=== PATIENT | female | born 1990 | race Caucasian/White ===

== ENCOUNTER 2018-09-11 20:00 | Emergency (ER) | payer OTHER ==
[2018-09-11] MEDS ORDERED: DIPH,PERTUS(ACELL)TETVAC-LF 0.5 ML VIAL IM ONE (20:18)
[2018-09-11] MEDS ORDERED: HYDROmorphone 0.5 MG/0.5 ML SYRINGE IVP STA ×2 (20:18→22:07)
[2018-09-11] MEDS ORDERED: LIDOCAINE 1% INJ 10MG/ML (20 ML MDV) SQ ONE (20:26)
--- NOTE | 2018-09-11 20:39 | ED ---
General Adult HPI - General Chief complaint: Wound/Laceration Stated complaint: Head Laceration Time Seen by Provider: 09/11/18 20:12 Source: patient, EMS, RN notes reviewed Mode of arrival: EMS Limitations: no limitations - History of Present Illness Initial comments: 28-year-old female presents to the emergency department for a chief complaint of laceration. Patient states that just prior to arrival she was trying to cut down a tree with a chainsaw. Patient states the chain saw came back and hit her in the head. States she started bleeding immediately and did not notice it appears that she called 911. Patient is up-to-date on tetanus. Admits to mild headache at this time. Patient has no other complaints at this time including shortness of breath, chest pain, abdominal pain, nausea or vomiting, or visual changes. - Related Data Home Medications Medication Instructions Recorded Confirmed PARoxetine [Paxil] 20 mg PO HS 02/11/14 09/11/18 buPROPion XL [Wellbutrin XL] 150 mg PO HS 02/11/14 09/11/18 traZODone HCL [Desyrel] 100 mg PO HS 02/11/14 09/11/18 Dextroamphetamine/Amphetamine 30 mg PO DAILY 09/11/18 09/11/18 [Adderall Xr] Allergies Allergy/AdvReac Type Severity Reaction Status Date / Time No Known Allergies Allergy Verified 09/11/18 21:52 Review of Systems ROS Statement: Those systems with pertinent positive or pertinent negative responses have been documented in the HPI. ROS Other: All systems not noted in ROS Statement are negative. Past Medical History Past Medical History: No Reported History History of Any Multi-Drug Resistant Organisms: None Reported Additional Past Surgical History / Comment(s): eye surgery for "lazy eye" Past Psychological History: Anxiety, Depression Smoking Status: Never smoker Past Alcohol Use History: Occasional Past Drug Use History: None Reported General Exam Limitations: no limitations General appearance: alert, in no apparent distress Head exam: Absent: atraumatic (Patient has a 6 cm laceration noted to the right frontal scalp when bleeding controlled.) Eye exam: Present: normal appearance, PERRL, EOMI. Absent: scleral icterus, conjunctival injection, periorbital swelling ENT exam: Present: normal exam, normal oropharynx, mucous membranes moist, TM's normal bilaterally, normal external ear exam Neck exam: Present: normal inspection, full ROM. Absent: tenderness, meningismus, lymphadenopathy Respiratory exam: Present: normal lung sounds bilaterally. Absent: respiratory distress, wheezes, rales, rhonchi, stridor Cardiovascular Exam: Present: regular rate, normal rhythm, normal heart sounds. Absent: systolic murmur, diastolic murmur, rubs, gallop, clicks Neurological exam: Present: alert, oriented X3, CN II-XII intact Psychiatric exam: Present: normal affect, normal mood Course Vital Signs 09/11/18 20:03 Temperature 98.5 F Pulse Rate 99 Respiratory 20 Rate Blood Pressure 133/78 O2 Sat by Pulse 99 Oximetry Procedures - Laceration Laceration #1 Consent Obtained: verbal consent Indication: laceration Site: scalp Size (cm): 6 Description: irregular Depth: simple, single layer Anesthetic Used: lidocaine 1% Anesthesia Technique: local infiltration Amount (mls): 8 Pre-repair: wound explored, irrigated extensively Type of Sutures: nylon Size of Sutures: 5-0 Number of Sutures: 9 Technique: simple, interrupted Patient Tolerated Procedure: well, no complications Medical Decision Making - Medical Decision Making 28-year-old female presents to the emergency department for a chief complaint of laceration to the head. Patient was using a chain saw when he accidentally hit her forehead. No loss of consciousness. Patient up-to-date on immunizations. On exam patient does have a 6 mL laceration. Initially difficult to evaluate because of patient's anxiety around this situation. Therefore CT brain was ordered to visualize the skull. CT brain without contrast shows no acute process. There is a right frontal cutaneous and subcutaneous soft tissue defects but underlying skull is intact. Wound was cleaned thoroughly with saline pressure irrigation and iodine. It was then sutured with 9 simple interrupted sutures. Discussed follow-up with primary care in 1-2 days. Discussed returning in 10 days to have sutures removed. Discussed returning if she has any other worsening symptoms. Disposition Clinical Impression: Laceration Disposition: HOME SELF-CARE Condition: Good Instructions (If sedation given, give patient instructions): Laceration (ED), Care For Your Stitches (ED) Additional Instructions: Please monitor for signs of infection such as spreading or streaking redness and return if these occur. Return if you have any other worsening symptoms. Otherwise return in 7-10 days for suture removal. Follow up with primary care in 1-2 days for wound recheck. Is patient prescribed a controlled substance at d/c from ED?: No Referrals: Carmelina Olsen DO [Primary Care Provider] - 1-2 days Time of Disposition: 22:08
--- NOTE | 2018-09-11 21:01 | CT ---
EXAMINATION: CT brain wo con DATE AND TIME: 09/11/2018 8:37 PM CLINICAL INDICATION: PHH; Pain, right frontal lac by chainsaw TECHNIQUE: Standard departmental protocol. COMPARISON: 05/31/2014 FINDINGS: The right frontal cutaneous and subcutaneous soft tissue defect is noted, but the underlying skull is intact. The calvarium is intact. There is no intracranial hemorrhage. There is no intracranial mass or mass effect. No definite new intra-axial or extra-axial attenuation defect. The paranasal sinuses, middle ear cavities, and mastoid sinus air cells are clear. The orbits are unremarkable. IMPRESSION: NO ACUTE PROCESS.
[2018-09-11] MEDS ORDERED: ACET/COD 300 MG/30 MG STARTER PACK 6 TAB BTL PO STA (22:08)
[2018-09-11 22:28] VITALS: BP 130/93; PULSE 93; RESP 18; TEMP 98.3
== END 2018-09-11 22:32 | disposition home or self-care (01) ==
LOC: EC 20:00
DX: S01.01XA Laceration without foreign body of scalp, initial encounter (principal); F41.9 Anxiety disorder, unspecified; F32.9 Major depressive disorder, single episode, unspecified; Z79.899 Other long term (current) drug therapy; W29.3XXA Contact with powered garden and outdoor hand tools and machinery, initial encounter; Y93.89 Activity, other specified; Y92.009 Unspecified place in unspecified non-institutional (private) residence as the place of occurrence of the external cause
CPT/HCPCS: 70450; 99284; 12002; 96374; 96376; J2001; J1170

== ENCOUNTER → 2018-12-17 | Outpatient (CLI) | payer OTHER ==
[2018-12-17 10:27] VITALS: BP 108/73; PULSE 99; RESP 18; TEMP 98.6; BMI 27.4
--- NOTE | 2018-12-17 10:46 | P.GSHP ---
History of Present Illness H&P Date: 12/17/18 Chief Complaint: bilateral nipple discharge Rosalba is a 28-year-old white female who complains of bilateral nipple discharge. The discharge is noted to be clear in color. The discharge is spontaneous and stains her bras. She had bilateral ultrasounds performed on 11-06-18 which revealed several dilated ducts noted in the retroareolar region of both breasts without dominant mass. A nonspecific axillary node was noted on the left side. These were felt to be benign findings and six-month follow-up was recommended. The patient states that both breasts show fall and sore the right greater than the left in the lateral aspects. The patient is on control pills and has not had a period for 6 months. The pain is constant. She is using nuva ring once a month. She has polycystic ovarian disease. She has not noted any blood in the nipple discharge. She has no lumps or masses in her breast. She has had no recent changes in her medication. She does use no ring for control She drinks coffee sporadically. She does not smoke, she is not exposed to secondhand smoke. States chocolate occasionally. Perirectal levels drawn an 8319. Her prolactin level was 14.5. Reference range is 4.8-23.3. Family History: 1. Maternal great-grandmother: Breast cancer 2. Paternal aunt: Breast cancer 3. Paternal grandmother: Brain cancer 4. 2 Paternal aunt: Breast cancer 5. paternal uncle: colon 6. paternal grandfather: colon 7. paternal uncle: liver cancer Hormonal history: Menarche: 9 G0 irregular, polycystic ovarian disease BCP: Has been using some type of control sense 14 secondary to polycystic ovarian disease, nuva ring for cntrol hormones: depo-provera caused acne, and hotflashes for polycystic ovarian disease Surgical History: 1. eye for lazy eye 2. Colposcopy for abnormal Pap smear Medical History: Polycystic ovarian syndrome Anxiety/depression History of cervical intraepithelial neoplasia grade 1 History of condyloma acuminata of vulva Social History: smoke: none alcohol: none drugs: none Smoke: none - Constitutional Constitutional: Denies chills, Denies fever - EENT Comment: surgery for bilateral lazy eye, right eye Eyes: right pain, denies loss of vision Ears: deny: decreased hearing, tinnitus Ears, nose, mouth and throat: Reports headache - Breasts Breasts: bilateral: as per HPI - Cardiovascular Cardiovascular: Denies chest pain, Denies shortness of breath - Respiratory Respiratory: Denies cough, Denies 7 - Gastrointestinal Gastrointestinal: Denies abdominal pain, Denies diarrhea, Denies nausea, Denies vomiting - Genitourinary (Female) Genitourinary: Denies dysuria, Denies hematuria - Menstruation Comment: Polycystic ovarian disease Menstruation: Reports cycle variable - Musculoskeletal Musculoskeletal: Denies myalgias - Integumentary Comment: since August abcesses form bilateral axillas, probable hidradenitis one was lanced and treated with antibiotics Integumentary: Reports rash, Denies pruritus - Neurological Neurological: Denies numbness, Denies weakness - Psychiatric Psychiatric: Reports anxiety - Endocrine Endocrine: Denies fatigue, Denies weight change - Hematologic/Lymphatic Comment: none - Allergic/Immunologic Allergic/Immunologic: Reports as per HPI Past Medical History Past Medical History: No Reported History History of Any Multi-Drug Resistant Organisms: None Reported Additional Past Surgical History / Comment(s): eye surgery for "lazy eye" Past Psychological History: Anxiety, Depression Smoking Status: Never smoker Past Alcohol Use History: Occasional Past Drug Use History: None Reported Medications and Allergies Home Medications Medication Instructions Recorded Confirmed Type PARoxetine [Paxil] 20 mg PO HS 02/11/14 09/11/18 History buPROPion XL [Wellbutrin XL] 150 mg PO HS 02/11/14 09/11/18 History traZODone HCL [Desyrel] 100 mg PO HS 02/11/14 09/11/18 History Dextroamphetamine/Amphetamine 30 mg PO DAILY 09/11/18 09/11/18 History [Adderall Xr] Etonogestrel/Ethinyl Estradiol 1 each VG DIRECTED 12/17/18 12/17/18 History [Nuvaring Vaginal Ring] Allergies Allergy/AdvReac Type Severity Reaction Status Date / Time No Known Allergies Allergy Verified 09/11/18 21:52 Surgical - Exam BMI 27.4 - General well developed, well nourished, no distress - Eyes normal ocular movement - ENT no hearing loss, no congestion - Neck no masses, trachea midline - Respiratory normal expansion, normal respiratory effort, clear to auscultation - Cardiovascular Rhythm: regular Heart Sounds: normal: S1, S2 - Abdomen Abdomen: soft, non tender, no guarding, no rigid, no rebound - Integumentary ormal tugor - Neurologic no disoriented, no combative - Musculoskeletal normal gait, normal posture - Psychiatric breast exam: Breast examination: Right breast: Multiple positional exam breast is very dense no dominant masses or nodules of concern, this manipulation is clear nipple discharge which is guaiac negative Radial basilic: No adenopathy of concern Left breast: Multiple positional exam, breast is very dense, no dominant masses or nodules of concern, clear nipple discharge with manipulation which is guaiac negative Left axilla: No adenopathy of concern Results Ultrasound results reviewed Prolactin level results reviewed Assessment and Plan Assessment: Impression: 1. Bilateral very dense breast 2. Ultrasound with dilated ducts bilateral and the breast 3. Guaiac-negative nipple discharge 4. Fibrocystic breast changes 5. Family history of breast cancer 6. Family history of cancer 7. Anxiety/depression 8. Polycystic ovarian disease 9. repeat bilateral ultrasound in 6 months Plan: 1. Patient will attempt a trial of primrose oil 2. Discussed with Dr. Stoddard possible changing her control method 3. At this time there is nothing that is worrisome for malignancy did not recommend any surgical intervention or biopsy 4. Close surveillance was able to strong family history 5. Reassurance related to the nipple discharge that this is not related to malignancy 6. Prolactin level was normal 7. Follow-up in 6 months for physician exam 8. repeat ultrasound bilateral in 6 months Cc: Dr. Stoddard, DR. Faria
== END | disposition home or self-care (01) ==
LOC: WWCWWP 10:07
PROVIDERS: ATTEND Surgery
DX: Z53.9 Procedure and treatment not carried out, unspecified reason (principal)

== ENCOUNTER 2019-09-20 08:11 | Emergency (ER) | payer OTHER ==
[2019-09-20 08:17] VITALS: RESP 18
--- NOTE | 2019-09-20 08:31 | ED ---
Abdominal Pain HPI - General Chief Complaint: Abdominal Pain Stated Complaint: Constipation Time Seen by Provider: 09/20/19 08:20 Source: patient, RN notes reviewed, old records reviewed Mode of arrival: ambulatory Limitations: no limitations - History of Present Illness Initial Comments: Patient is a 29-year-old female presents emergency department today with chief complaint of constipation. She reports that she has been dealing with difficult to having a bowel movement for approximately a month. She states she's been trying MiraLAX and stool softeners at home and has of this week was able to pass small bowel movements but nothing significant. She continues to complain of abdominal distention and discomfort. She reports the pain does radiate somewhat towards her back. She states that she has had an upper and lower scope done many years ago when she was younger when she was having abdominal pains after eating. Patient states that she's had no recent vomiting. She states that after taking MiraLAX the past couple days she is passing more gas. - Related Data Home Medications Medication Instructions Recorded Confirmed PARoxetine [Paxil] 20 mg PO HS 02/11/14 09/20/19 buPROPion XL [Wellbutrin XL] 150 mg PO HS 02/11/14 09/20/19 traZODone HCL [Desyrel] 100 mg PO HS 02/11/14 09/20/19 Dextroamphetamine/Amphetamine 30 mg PO QAM 09/11/18 09/20/19 [Adderall Xr] Etonogestrel/Ethinyl Estradiol 1 each VG DIRECTED 12/17/18 09/20/19 [Nuvaring Vaginal Ring] Allergies Allergy/AdvReac Type Severity Reaction Status Date / Time No Known Allergies Allergy Verified 09/20/19 08:56 Review of Systems ROS Statement: Those systems with pertinent positive or pertinent negative responses have been documented in the HPI. ROS Other: All systems not noted in ROS Statement are negative. Past Medical History Past Medical History: No Reported History Additional Past Medical History / Comment(s): polycystic ovarian syndrome; History of Any Multi-Drug Resistant Organisms: None Reported Additional Past Surgical History / Comment(s): eye surgery for "lazy eye" Past Anesthesia/Blood Transfusion Reactions: No Reported Reaction Past Psychological History: Anxiety, Depression Smoking Status: Never smoker Past Alcohol Use History: Occasional Past Drug Use History: None Reported - Past Family History Mother Additional Family Medical History / Comment(s): maternal grandmother breast cancer; Father Additional Family Medical History / Comment(s): paternal grand mother brain cancer General Exam - General Exam Comments Initial Comments: Well-appearing alert and oriented 29-year-old female, no significant distress. Limitations: no limitations General appearance: alert, in no apparent distress Head exam: Present: atraumatic, normocephalic, normal inspection Eye exam: Present: normal appearance, PERRL, EOMI. Absent: scleral icterus, conjunctival injection, periorbital swelling ENT exam: Present: normal exam, mucous membranes moist Neck exam: Present: normal inspection. Absent: tenderness, meningismus, lymphadenopathy Respiratory exam: Present: normal lung sounds bilaterally. Absent: respiratory distress, wheezes, rales, rhonchi, stridor Cardiovascular Exam: Present: regular rate GI/Abdominal exam: Present: soft, distended, tenderness (RLQ and LLQ ), normal bowel sounds. Absent: guarding, rebound, rigid Back exam: Present: normal inspection Neurological exam: Present: alert, oriented X3, CN II-XII intact Psychiatric exam: Present: normal affect, normal mood Skin exam: Present: warm, dry, intact, normal color. Absent: rash Course Vital Signs 09/20/19 08:13 Temperature 98.6 F Pulse Rate 86 Respiratory 18 Rate Blood Pressure 118/78 O2 Sat by Pulse 97 Oximetry Medical Decision Making - Medical Decision Making 29-year-old female presents to the emergency department today for evaluation for concern for constipation. She is doing this a shot for the past month. She has been taking MiraLAX for the past couple days to have small bowel movement. She does report was for. At this time patient's urinalysis is negative for any acute process. She has no fever and vital signs are stable. No vomiting. And she is passing gas. She does have some fullness to lower abdomen. X-ray does show moderate amount of stool throughout the entire colon. No signs of obstructive process at this time. I informed Patient we could do perform an enema while in the emergency department Patient declines prefers to go home. I will discharge Patient bottle of magnesium citrate and they're back and is to use at home. I advised Patient to return to emergency department if any alarming signs or symptoms occur. I also discussed the importance of following up with GI doctor scheduled scope. - Lab Data Lab Results 09/20/19 09/20/19 Range/Units 08:37 08:37 Urine Color Yellow Urine Appearance Slightly Cloudy H (Clear) Urine pH 6.0 (5.0-8.0) Ur Specific [place] 1.020 (1.001-1.035) Urine Protein Negative (Negative) Urine Glucose (UA) Negative (Negative) Urine Ketones Negative (Negative) Urine Blood Negative (Negative) Urine Nitrite Negative (Negative) Urine Bilirubin Negative (Negative) Urine Urobilinogen 2.0 (<2.0) mg/dL Ur Leukocyte Esterase Moderate (Negative) Urine RBC 2 (0-5) /hpf Urine WBC 7 H (0-5) /hpf Ur Squamous Epith Cells 3 (0-4) /hpf Urine Bacteria Rare H (None) /hpf Urine Mucus Many H (None) /hpf Urine HCG, Qual Not Detected (Not Detectd) - Radiology Data Radiology results: report reviewed KUB shows non-obstructive bowel gas pattern currently. Disposition Clinical Impression: Constipation Disposition: HOME SELF-CARE Condition: Good Instructions (If sedation given, give patient instructions): Constipation (ED) Additional Instructions: Patient is to follow-up with the GI doctor. Use the magnesium citrate bottle while at home. This can cause some abdominal cramping. Should help rule bowel movements. Also using the Theravac enema. Follow up with PCP and return to ED if any alarming signs or symptoms occur. Is patient prescribed a controlled substance at d/c from ED?: No Referrals: Catina Gayle DO [Primary Care Provider] - 1-2 days Nona Cifuentes MD [STAFF PHYSICIAN] - 1-2 days Time of Disposition: 09:35
[2019-09-20] MEDS ORDERED: MAGNESIUM CITRATE 296 ML BOTTLE PO ONE (08:33)
[2019-09-20 09:07] LABS: Appearance,Urine Slightly Cloudy (Clear)
[2019-09-20 09:08] LABS: Color,Urine Yellow
[2019-09-20 09:09] LABS: Bilirubin,Urine Negative (Negative); Blood,Urine Negative (Negative); Glucose,Urine (UA) Negative (Negative); Ketones,Urine Negative (Negative); Leukocyte Esterase,Urine Moderate (Negative); Nitrite,Urine Negative (Negative); Protein,Urine Negative (Negative)
[2019-09-20 09:11] LABS: Bacteria,Urine Rare /hpf; Mucus,Urine Many /hpf; RBC,Urine 2 /hpf (0-5); Squamous Epithelial Cell,Urine 3 /hpf (0-4); WBC,Urine 7 /hpf (0-5)
--- NOTE | 2019-09-20 09:32 | XR ---
EXAMINATION TYPE: XR KUB DATE OF EXAM: 09/20/2019 9:22 AM CLINICAL HISTORY: Abdominal pain with constipation. TECHNIQUE: Two Upright KUB images of the abdomen are obtained. COMPARISON: CT abdomen and pelvis September 20, 2014. FINDINGS: Scattered gas is seen in non-distended stomach and small bowel loops. Gas and fecal materia l is seen in non-distended colon. Few scattered surgical clips in the lower abdomen and pelvis. Lung bases are clear. No pneumoperitoneum. The osseous structures are intact. IMPRESSION: Overall nonobstructive bowel gas pattern currently.
[2019-09-20] MEDS ORDERED: DOCUSATE 283 MG/5 ML ENEMA RECTAL STA (09:36)
[2019-09-20 10:08] VITALS: BP 114/66; PULSE 78; TEMP 98.4
== END 2019-09-20 10:00 | disposition home or self-care (01) ==
LOC: EC 08:11
DX: K59.00 Constipation, unspecified (principal); E28.2 Polycystic ovarian syndrome; F41.9 Anxiety disorder, unspecified; F32.9 Major depressive disorder, single episode, unspecified; Z79.899 Other long term (current) drug therapy; Z79.3 Long term (current) use of hormonal contraceptives
CPT/HCPCS: 74018; 81001; 81025; 99284

== ENCOUNTER 2022-11-10 17:11 | Emergency (ER) | payer BC, OTHER ==
[2022-11-10 17:19] VITALS: TEMP 98.4
--- NOTE | 2022-11-10 17:37 | ED ---
General Adult HPI - General Chief complaint: Abdominal Pain Stated complaint: RUQ pain Time Seen by Provider: 11/10/22 17:34 Source: patient Mode of arrival: ambulatory Limitations: no limitations - History of Present Illness Initial comments: Patient presents to the ED complaining of having intermittent right upper quadrant abdominal pain for the past month or so. Patient states that her right upper quadrant pain has been more frequent over the past few days. Patient states that she had severe pain earlier today, but her pain has currently subsided. Patient admits to having associated nausea. Patient states that her pain is worse with PO intake. Patient denies radiation of her pain, trauma or injury, fever or chills, chest pain, dyspnea, pleuritic pain, cough or cold symptoms, dizziness, back pain, vomiting, diarrhea or constipation, bloody or melanotic stool, dysuria/hematuria/urinary frequency/urinary symptoms, vaginal bleeding or discharge, or any other symptoms or complaints. - Related Data Home Medications Medication Instructions Recorded Confirmed PARoxetine [Paxil] 20 mg PO HS 02/11/14 09/20/19 buPROPion XL [Wellbutrin XL] 150 mg PO HS 02/11/14 09/20/19 traZODone HCL [Desyrel] 100 mg PO HS 02/11/14 09/20/19 Dextroamphetamine/Amphetamine 30 mg PO QAM 09/11/18 09/20/19 [Adderall Xr] Etonogestrel/Ethinyl Estradiol 1 each VG DIRECTED 12/17/18 09/20/19 [Nuvaring Vaginal Ring] Allergies Allergy/AdvReac Type Severity Reaction Status Date / Time No Known Allergies Allergy Verified 11/10/22 17:19 Review of Systems ROS Statement: Those systems with pertinent positive or pertinent negative responses have been documented in the HPI. ROS Other: All systems not noted in ROS Statement are negative. Past Medical History Past Medical History: No Reported History Additional Past Medical History / Comment(s): polycystic ovarian syndrome; History of Any Multi-Drug Resistant Organisms: None Reported Additional Past Surgical History / Comment(s): eye surgery for "lazy eye" Past Anesthesia/Blood Transfusion Reactions: No Reported Reaction Past Psychological History: Anxiety, Depression Smoking Status: Never smoker Past Alcohol Use History: Occasional Past Drug Use History: None Reported - Past Family History Mother Additional Family Medical History / Comment(s): maternal grandmother breast cancer; Father Additional Family Medical History / Comment(s): paternal grand mother brain cancer General Exam Limitations: no limitations General appearance: alert, in no apparent distress Head exam: Present: normocephalic ENT exam: Present: mucous membranes moist Respiratory exam: Present: normal lung sounds bilaterally. Absent: respiratory distress, wheezes, rales, rhonchi, stridor Cardiovascular Exam: Present: regular rate, normal rhythm, normal heart sounds, other (Normal radial pulses bilaterally) GI/Abdominal exam: Present: soft, normal bowel sounds, other (Mild right upper quadrant abdominal tenderness). Absent: distended, guarding, rebound Extremities exam: Absent: pedal edema, calf tenderness Back exam: Absent: CVA tenderness (R), CVA tenderness (L) Neurological exam: Present: alert, oriented X3 Psychiatric exam: Present: normal affect, normal mood Skin exam: Present: warm, dry, intact, normal color Course Vital Signs 11/10/22 17:17 Temperature 98.4 F Pulse Rate 100 Respiratory 20 Rate Blood Pressure 125/66 O2 Sat by Pulse 99 Oximetry - Reevaluation(s) Reevaluation #1: 11/10/22 21:24 Patient states that her pain has improved at this time. Patient denies development of any new symptoms while in the ED. Patient is aware of her test results, and she feels comfortable being discharged home at this time. Patient was counseled about abdominal pain and kidney stones. Patient was clearly expla ined return and follow-up instructions, and she feels comfortable with this plan. Medical Decision Making - Medical Decision Making Was pt. sent in by a medical professional or institution (, PA, LEARNING DEVELOPMENT SPECIALIST, urgent care, hospital, or retirement...) When possible be specific @ -No Did you speak to anyone other than the patient for history (EMS, parent, family, police, friend...)? What history was obtained from this source @ -No Did you review nursing and triage notes (agree or disagree)? Why? @ -I reviewed and agree with nursing and triage notes Were old charts reviewed (outside hosp., previous admission, EMS record, old EKG, old radiological studies, urgent care reports/EKG's, retirement records)? Report findings @ -No old charts were reviewed Differential Diagnosis (chest pain, altered mental status, abdominal pain women, abdominal pain men, vaginal bleeding, weakness, fever, dyspnea, syncope, headache, dizziness, GI bleed, back pain, seizure, CVA, palpatations, mental health, musculoskeletal)? @ -Abdominal pain, PUD, gastritis, GERD, biliary disease, hepatitis, colitis, enteritis, appendicitis, ovarian cyst, , ectopic , UTI, renal stone EKG interpreted by me (3pts min.). @ -None done X-rays interpreted by me (1pt min.). @ -None done CT interpreted by me (1pt min.). @ -Noncontrast CT abdomen/pelvis was reviewed myself and shows nonobstructing renal stones. I agree with the radiologist's interpretation as above. U/S interpreted by me (1pt. min.). @ -As above. What testing was considered but not performed or refused? (CT, X-rays, U/S, lab s)? Why? @ -None What meds were considered but not given or refused? Why? @ -None Did you discuss the management of the patient with other professionals (professionals i.e. , PA, LEARNING DEVELOPMENT SPECIALIST, lab, RT, psych nurse, medical social consultant, regional sales director, teacher, information technology officer, field nurse case manager)? Give summary @ -No Was smoking cessation discussed for >3mins.? @ -No Was critical care preformed (if so, how long)? @ -No Were there social determinants of health that impacted care today? How? (Homelessness, low income, unemployed, alcoholism, drug addiction, transportation, low edu. Level, literacy, decrease access to med. care, correction, rehab)? @ -No Was there de-escalation of care discussed even if they declined (Discuss DNR or withdrawal of care, Hospice)? DNR status @ -No What co-morbidities impacted this encounter? (DM, HTN, Smoking, COPD, CAD, Cancer, CVA, ARF, Chemo, Hep., AIDS, mental health diagnosis, sleep apnea, morbid obesity)? @ -None Was patient admitted / discharged? Hospital course, mention meds given and route, prescriptions, significant lab abnormalities, going to OR and other pertinent info. @ -Patient's pain is improved while in the ED. Given the patient's hematuria and CT finding of bilateral nonobstructing nephrolithiasis, I suspect that the patient's pain is likely from a recently passed renal stone. Patient is afebrile and without significant leukocytosis. Patient's gallbladder ultrasound is negative. The rest of the patient's labs are fairly unremarkable. Patient continues to have a soft/nonsurgical abdominal exam. Patient was counseled about nephrolithiasis and abdominal pain, and she was clearly explained return and follow-up instructions. Will discharge patient home at this time. Patient feels comfortable with this plan. Undiagnosed new problem with uncertain prognosis? @ -No Drug Therapy requiring intensive monitoring for toxicity (Heparin, Nitro, Insulin, Cardizem)? @ -No Were any procedures done? @ -No Diagnosis/symptom? @ -Abdominal pain Acute, or Chronic, or Acute on Chronic? @ -Acute Uncomplicated (without systemic symptoms) or Complicated (systemic symptoms)? @ -default Side effects of treatment? @ -No Exacerbation, Progression, or Severe Exacerbation? @ -No Poses a threat to life or bodily function? How? (Chest pain, [place], [place], pneumonia, PE, COPD, DKA, ARF, appy, cholecystitis, CVA, Diverticulitis, Homicidal, Suicidal, threat to staff... and all critical care pts) @ -No Diagnosis/symptom? @ -Bilateral nephrolithiasis Acute, or Chronic, or Acute on Chronic? @ -default Uncomplicated (without systemic symptoms) or Complicated (systemic symptoms)? @ -default Side effects of treatment? @ -none Exacerbation, Progression, or Severe Exacerbation] @ -no Poses a threat to life or bodily function? @ -no - Lab Data Result diagrams: 11/10/22 18:38 11/10/22 18:38 Lab Results 11/10/22 11/10/22 11/10/22 Range/Units 18:38 18:38 18:38 WBC 10.7 H (3.8-10.6) k/uL RBC 4.76 (3.80-5.40) m/uL Hgb 13.8 (11.4-16.0) gm/dL Hct 40.6 (34.0-46.0) % MCV 85.2 (80.0-100.0) fL MCH 29.0 (25.0-35.0) pg MCHC 34.0 (31.0-37.0) g/dL RDW 12.3 (11.5-15.5) % Plt Count 285 (150-450) k/uL MPV 7.3 Neutrophils % 68 % Lymphocytes % 26 % Monocytes % 2 % Eosinophils % 2 % Basophils % 1 % Neutrophils # 7.3 (1.3-7.7) k/uL Lymphocytes # 2.8 (1.0-4.8) k/uL Monocytes # 0.3 (0-1.0) k/uL Eosinophils # 0.2 (0-0.7) k/uL Basophils # 0.1 (0-0.2) k/uL Sodium 137 (137-145) mmol/L Potassium 3.7 (3.5-5.1) mmol/L Chloride 104 (98-107) mmol/L Carbon Dioxide 24 (22-30) mmol/L Anion Gap 9 mmol/L BUN 14 (7-17) mg/dL Creatinine 0.66 (0.52-1.04) mg/dL Est GFR (CKD-EPI)AfAm >90 (>60 ml/min/1.73 sqM) Est GFR (CKD-EPI)NonAf >90 (>60 ml/min/1.73 sqM) Glucose 84 (74-99) mg/dL Calcium 9.1 (8.4-10.2) mg/dL Total Bilirubin 0.4 (0.2-1.3) mg/dL AST 22 (14-36) U/L ALT 20 (4-34) U/L Alkaline Phosphatase 65 (38-126) U/L Total Protein 6.9 (6.3-8.2) g/dL Albumin 4.0 (3.5-5.0) g/dL Lipase 53 (23-300) U/L HCG, Quant <2.4 mIU/mL Urine Color Yellow Urine Appearance Clear (Clear) Urine pH 6.0 (5.0-8.0) Ur Specific Waite 1.022 (1.001-1.035) Urine Protein Negative (Negative) Urine Glucose (UA) Negative (Negative) Urine Ketones Negative (Negative) Urine Blood Moderate H (Negative) Urine Nitrite Negative (Negative) Urine Bilirubin Negative (Negative) Urine Urobilinogen <2.0 (<2.0) mg/dL Ur Leukocyte Esterase Small H (Negative) Urine RBC 70 H (0-5) /hpf Urine WBC 2 (0-5) /hpf Ur Squamous Epith Cells 1 (0-4) /hpf Urine Mucus Occasional H (None) /hpf - Radiology Data Gallbladder ultrasound: No evidence for acute process. Noncontrast CT abdomen/pelvis: 1. Bilateral renal calculi without evidence for obstructive uropathy. Correlate for recently passed stone. 2. The appendix is normal. Disposition Clinical Impression: Abdominal pain, Nephrolithiasis Disposition: HOME SELF-CARE Condition: Stable Instructions (If sedation given, give patient instructions): Kidney Stones (ED) , Abdominal Pain (ED) Additional Instructions: Return to the ER immediately should you develop new or worsening pain, a fever, vomiting, feeling dizzy or faint, shortness of breath, or new or worsening symptoms. Follow up closely with your primary care provider, as well as a urologist. Is patient prescribed a controlled substance at d/c from ED?: No Referrals: Catina Gayle DO [Primary Care Provider] - 1-2 days Jay Robins MD [STAFF PHYSICIAN] - 1-2 days Time of Disposition: 21:26
--- NOTE | 2022-11-10 18:20 | US ---
EXAMINATION TYPE: US gallbladder DATE OF EXAM: 11/10/2022 COMPARISON: NONE CLINICAL INDICATION: Female, 32 years old with history of RUQ abd pain; RUQ pain ongoing for months b ut worse the last 3 days TECHNIQUE: Multiple sonographic images of the right upper quadrant are obtained. FINDINGS: EXAM MEASUREMENTS: Liver Length: 15.3 cm Gallbladder Wall: 0.2 cm CBD: 0.4 cm Right Kidney: 10.5 x 4.8 x 4.5 cm Pancreas: wnl Liver: wnl Gallbladder: wnl Evidence for sonographic Le's sign: no CBD: wnl Right Kidney: wnl IMPRESSION: No evidence for acute process.
[2022-11-10 18:46] LABS: Basophils # (A) 0.1 k/uL (0-0.2); Basophils % (A) 1 %; Eosinophils # (A) 0.2 k/uL (0-0.7); Eosinophils % (A) 2 %; HCT 40.6 % (34.0-46.0); HGB 13.8 gm/dL (11.4-16.0); Lymphocytes # (A) 2.8 k/uL (1.0-4.8); Lymphocytes % (A) 26 %; MCV 85.2 fL (80.0-100.0); Mean Platelet Volume 7.3; Monocytes # (A) 0.3 k/uL (0-1.0); Monocytes % (A) 2 %; Neutrophils # (A) 7.3 k/uL (1.3-7.7); Neutrophils % (A) 68 %; Platelet Count 285 k/uL (150-450); RBC 4.76 m/uL (3.80-5.40); RDW 12.3 % (11.5-15.5); WBC 10.7 k/uL (3.8-10.6)
[2022-11-10 18:59] LABS: Appearance,Urine Clear (Clear); Bilirubin,Urine Negative (Negative); Blood,Urine Moderate (Negative); Color,Urine Yellow; Glucose,Urine (UA) Negative (Negative); Ketones,Urine Negative (Negative); Leukocyte Esterase,Urine Small (Negative); Mucus,Urine Occasional /hpf; Nitrite,Urine Negative (Negative); Protein,Urine Negative (Negative); RBC,Urine 70 /hpf (0-5); Specific Gravity,Urine 1.022 (1.001-1.035); Squamous Epithelial Cell,Urine 1 /hpf (0-4); Urobilinogen,Urine <2.0 mg/dL (<2.0); WBC,Urine 2 /hpf (0-5)
[2022-11-10 19:06] LABS: ALT 20 U/L (4-34); AST 22 U/L (14-36); African American GFR (CKD) >90 (>60 ml/min/1.73 sqM); Alkaline Phosphatase 65 U/L (38-126); Anion Gap 9 mmol/L; Blood Urea Nitrogen 14 mg/dL (7-17); Calcium 9.1 mg/dL (8.4-10.2); Carbon Dioxide 24 mmol/L (22-30); Chloride 104 mmol/L (98-107); Glucose 84 mg/dL (74-99); Lipase 53 U/L (23-300); Non-African American GFR(CKD) >90 (>60 ml/min/1.73 sqM); Potassium 3.7 mmol/L (3.5-5.1); Sodium 137 mmol/L (137-145); Total Bilirubin 0.4 mg/dL (0.2-1.3); Total Protein 6.9 g/dL (6.3-8.2)
[2022-11-10 19:23] LABS: HCG,Quantitative Serum <2.4 mIU/mL
--- NOTE | 2022-11-10 19:59 | CT ---
EXAMINATION TYPE: CT abdomen pelvis wo con CT DLP: 499.7 mGycm, Automated exposure control for dose reduction was used. DATE OF EXAM: 11/10/2022 7:35 PM COMPARISON: 09/20/2014 CLINICAL INDICATION:Female, 32 years old with history of RUQ abdominal pain, hematuria; abdominal carlos n, hematuria TECHNIQUE: Axial CT of the abdomen and pelvis. Sagittal and coronal reformats were created on a [employer] workstation. Contrast used: mL of , (none if empty) Oral contrast used: without Oral Contrast (none if empty) FINDINGS: LOWER CHEST: Unremarkable ABDOMEN LIVER: Unremarkable GALLBLADDER AND BILE DUCTS: Unremarkable. PANCREAS: Unremarkable. SPLEEN: Unremarkable. ADRENAL GLANDS: Unremarkable. KIDNEYS AND URETERS: Bilateral renal calculi measuring up to 5 mm on the right and 2 mm on the left. No evidence for obstructive uropathy. PELVIS BLADDER: Unremarkable REPRODUCTIVE: Unremarkable. ABDOMEN & PELVIS STOMACH AND BOWEL: No evidence of bowel obstruction. PERITONEUM/RETROPERITONEUM: No evidence of pneumoperitoneum or free fluid. VASCULATURE: No evidence of aortic aneurysm. MUSCULOSKELETAL: No acute osseous abnormalities LYMPH NODES: No gross evidence for lymphadenopathy. SOFT TISSUE/ABDOMINAL WALL: Unremarkable IMPRESSION: 1. Bilateral renal calculi without evidence for obstructive uropathy. Correlate for recently passed stone. 2. The appendix is normal.
[2022-11-10 21:51] VITALS: BP 125/88; PULSE 78; RESP 16
== END 2022-11-10 21:51 | disposition home or self-care (01) ==
LOC: EC 17:11
DX: N20.0 Calculus of kidney (principal); F32.A Depression, unspecified; F41.9 Anxiety disorder, unspecified; Z79.899 Other long term (current) drug therapy
CPT/HCPCS: 36415; 74176; 76705; 80053; 81001; 83690; 84702; 85025; 99284

== ENCOUNTER → 2022-12-05 | Outpatient (CLI) | payer BC ==
[2022-12-05 21:32] LABS: Basophils # (A) 0.07 X 10*3/uL (0.00-0.10); Basophils % (A) 0.6 %; Eosinophils # (A) 0.09 X 10*3/uL (0.04-0.35); Eosinophils % (A) 0.8 %; HCT 44.1 % (37.2-46.3); Lymphocytes # (A) 3.65 X 10*3/uL (0.90-5.00); Lymphocytes % (A) 30.6 %; MCHC 31.7 d/dL (32.0-37.0); MCV 88.2 FL (80.0-97.0); Mean Platelet Volume 10.7 FL (9.5-12.2); Monocytes % (A) 4.2 %; NRBC Per 100 WBC 0 X 10*3/uL (0.00-0.01); Neutrophils # (A) 7.51 X 10*3/uL (1.80-7.70); Neutrophils % (A) 62.8 %; Platelet Count 397 X 10*3/uL (140-440); RDW 12.4 % (11.5-14.5); WBC 11.94 X 10*3/uL (4.50-10.00)
[2022-12-06 01:50] LABS: BUN/Creat Ratio 12.14 Ratio (12.00-20.00); Blood Urea Nitrogen 8.5 mg/dL (9.0-27.0); Calcium 10.4 mg/dL (8.7-10.3); Carbon Dioxide 26.4 mmol/L (21.6-31.8); Chloride 101 mmol/L (96-109); Glucose 73 mg/dL (70-110); Potassium 4.7 mmol/L (3.5-5.5); Sodium 139 mmol/L (135-145)
[2022-12-06 02:20] LABS: Appearance,Urine Clear (Clear); Bilirubin,Urine Negative (Negative); Blood,Urine Negative (Negative); Color,Urine Yellow (Yellow); Ketones,Urine Negative (Negative); Nitrite,Urine Negative (Negative); Specific Gravity,Urine 1.007 (1.001-1.030); Urobilinogen,Urine 0.2 E.U./DL
[2022-12-06 03:34] LABS: Bacteria,Urine None Seen (None Seen)
== END | disposition home or self-care (01) ==
LOC: LABPAT 16:20
PROVIDERS: ATTEND Urology
DX: Z01.812 Encounter for preprocedural laboratory examination (principal); N20.0 Calculus of kidney
CPT/HCPCS: 80048; 81001; 85025; 87086

== ENCOUNTER 2022-12-10 07:11 | Day surgery (SDC) | payer BC ==
[2022-12-09 09:27] VITALS: BMI 28.3
[2022-12-10] MEDS ORDERED: ONDANSETRON 4 MG/2 ML VIAL IVP ONE (08:00)
[2022-12-10] MEDS ORDERED: SCOPOLAMINE 1 MG/72 HR PATCH TRANSDERM ONE ×2 (08:00→08:11)
[2022-12-10] MEDS ORDERED: HYDROmorphone 0.5 MG/0.5 ML SYRINGE IVP PRN (08:00)
[2022-12-10] MEDS ORDERED: fentaNYL (PF) 50 MCG/ML 2 ML AMP IV PRN (08:00)
[2022-12-10] MEDS ORDERED: LACTATED RINGERS 1,000 ML IV SCH (08:00)
[2022-12-10] MEDS ORDERED: DEXAMETHASONE SOD PHOSPHATE 4 MG/ML 1 ML VIAL IVP ONE (08:11)
--- NOTE | 2022-12-10 08:44 | P.HPIHPCON ---
History of Present Illness H&P Date: 12/10/22 Chief Complaint: right Sided renal stone This is a 32-year-old female with history of multiple right-sided renal stones, she is symptomatically from her stone. Option of right-sided ureteroscopy with holmium laser versus ESWL was discussed with her in detail. She agreed to proceed with right-sided ureteroscopy with holmium laser, aware of the risk which include but not limited to bleeding, infection, injury to the ureter. Risk of anesthesia was also discussed. She understood all the risk and agreed to proceed Consent for Procedure: I have explained the operation/procedure to the patient, including the risks, benefits, side effects, alternative therapies (including not receiving the proposed treatment or service), the likelihood of the patient achieving his/her goals, and potential recuperation problems for the procedure/sedation/analgesia, as well as any blood products, if indicated. I also explained to the patient the risks, benefits and side effects of the alternatives, as well as the risks related to not receiving the proposed procedure, care, treatment, or services. Past Medical History Past Medical History: No Reported History Additional Past Medical History / Comment(s): Polycystic ovarian syndrome. Current kidney stones. History of Any Multi-Drug Resistant Organisms: None Reported Additional Past Surgical History / Comment(s): Eye surgery for "lazy eye". Past Anesthesia/Blood Transfusion Reactions: No Reported Reaction, Motion Sickness Past Psychological History: Anxiety, Depression Smoking Status: Never smoker Past Alcohol Use History: Occasional Past Drug Use History: None Reported - Past Family History Mother Additional Family Medical History / Comment(s): Maternal grandmother had breast cancer. Father Additional Family Medical History / Comment(s): Paternal grandmother had brain cancer. Medications and Allergies Home Medications Medication Instructions Recorded Confirmed Type PARoxetine [Paxil] 20 mg PO HS 02/11/14 12/09/22 History buPROPion XL [Wellbutrin XL] 150 mg PO HS 02/11/14 12/09/22 History traZODone HCL [Desyrel] 100 mg PO HS 02/11/14 12/09/22 History Dextroamphetamine/Amphetamine 30 mg PO QAM 09/11/18 12/09/22 History [Adderall Xr] Etonogestrel/Ethinyl Estradiol 1 each VG DIRECTED 12/17/18 12/09/22 History [Nuvaring Vaginal Ring] Allergies Allergy/AdvReac Type Severity Reaction Status Date / Time No Known Allergies Allergy Verified 12/09/22 09:17 Surgical - Exam Vital Signs Temp Pulse Resp BP Pulse Ox 98.3 F 87 16 111/57 98 12/10/22 08:09 12/10/22 08:09 12/10/22 08:09 12/10/22 08:09 12/10/22 08:09 - General no distress, moderate pain - Eyes normal ocular movement, no pale - ENT normal nares, normal mucosa - Respiratory normal expansion, normal respiratory effort - Abdomen Abdomen: soft, non tender - Psychiatric oriented to time, oriented to person, oriented to place Assessment and Plan Assessment: OR for right-sided ureteroscopy, holmium laser lithotripsy, stone basketing and stent insertion
[2022-12-10] MEDS ORDERED: fentaNYL (PF) 50 MCG/ML 2 ML AMP ONE (08:54)
[2022-12-10] MEDS ORDERED: LIDOCAINE 2% INJ 20 MG/ML (2 ML VIAL) ONE (08:54)
[2022-12-10] MEDS ORDERED: PROPOFOL 10 MG/ML 20 ML VIAL IV ONE (08:54)
[2022-12-10] MEDS ORDERED: MIDAZOLAM 2 MG/2 ML VIAL ONE (08:54)
--- NOTE | 2022-12-10 09:15 | XR ---
EXAMINATION TYPE: XR KUB DATE OF EXAM: 12/10/2022 COMPARISON: 09/20/2019 HISTORY: Pain TECHNIQUE: One view abdominal series FINDINGS: The osseous structures are intact. The bowel gas pattern is nonspecific. Extensive retained fecal de bris. There is a 3 mm calcification right upper abdomen. IMPRESSION: 1. Nonspecific abdomen. Correlate for constipation. 2. 3 mm right upper quadrant calcification possibly related to the right kidney.
[2022-12-10 10:06] VITALS: TEMP 97
[2022-12-10] MEDS ORDERED: droPERidol 5 MG/2 ML VIAL IVP ONE (10:16)
[2022-12-10] MEDS ORDERED: KETOROLAC 15 MG/ML 1 ML VIAL IVP ONE (10:17)
--- NOTE | 2022-12-10 10:18 | FL ---
EXAMINATION TYPE: FL guidance operating room DATE OF EXAM: 12/10/2022 HISTORY: Fluoroscopy time Total dose area product (DAP) in uGy*m?, mGy*cm? (or similar): 0.17756 IMPRESSION: 1. Fluoroscopy time.
[2022-12-10 11:32] VITALS: BP 118/77; PULSE 94; RESP 17
--- NOTE | 2022-12-10 11:33 | P.OP ---
Date of Procedure: 12/10/22 Preoperative Diagnosis: Right renal stones Postoperative Diagnosis: Same Procedure(s) Performed: Right ureteroscopy, holmium laser lithotripsy, stone basketing and stent insertion Implants: 6-Russian by 24 cm stent in the right ureter left on a string Anesthesia: [facility] Surgeon: Jay Robins Estimated Blood Loss (ml): 5 Pathology: other (right renal stone) Condition: stable Disposition: PACU Indications for Procedure: This is a 32-year-old female with history of multiple right-sided renal stones, she is symptomatically from her stone. Option of right-sided ureteroscopy with holmium laser versus ESWL was discussed with her in detail. She agreed to proceed with right-sided ureteroscopy with holmium laser, aware of the risk which include but not limited to bleeding, infection, injury to the ureter. Risk of anesthesia was also discussed. She understood all the risk and agreed to proceed Operative Findings: large stone in the renal pelvis, 2 stones in the midpole and 1 stone in the upper pole Description of Procedure: Patient brought to the operating room, general anesthesia was induced. She was prepped and draped in sterile fashion and placed in dorsal lithotomy position. Cystoscopy fitted with a 21-Russian sheath was inserted per urethra, cystoscopy was performed which showed no abnormality within the bladder. Next the ureteral orifice was intubated with a sensor wire. Next under fluoroscopy 1113 Russian access sheath was passed over the wire and into the proximal ureter. Next a flexible ureteroscope was inserted through the access sheath, renoscopy was performed which showed a total of 4 stones, there was a stone in the renal pelvis and two stones in midpole and one in the upper pole. Using the holmium laser the stones were fragmented, stone fragments were removed using the stone basket. Repeat renoscopy showed no sizable stones or injury to the kidney, on fluoroscopy there was no radiopaque densities. Pullback ureteroscopy was performed which showed no injury to the ureter or any ureteral stones, as ureteroscope was withdrawn a sensor wire was advanced through. Next a ureteral stent was passed over the wire, the proximal curl was visualized on fluoroscopy and the distal curl was visualized using cystoscope. The stent was left on a string and taped to the patient's thigh. Patient tolerated the procedure well was taken to recovery in stable condition
== END 2022-12-10 11:57 | disposition home or self-care (01) ==
LOC: OR 07:11
PROVIDERS: ATTEND Urology
DX: N20.0 Calculus of kidney (principal); Z98.890 Other specified postprocedural states; Z86.59 Personal history of other mental and behavioral disorders; Z79.899 Other long term (current) drug therapy
CPT/HCPCS: 81025; 82365; 74018; 52356; C2625; C1769; J2250; J1100; J0690; J2405; J3010; J1885; J2704; J1790; J2001

== ENCOUNTER 2022-12-15 22:54 | Observation (INO) | payer BC ==
[2022-12-15] MEDS ORDERED: IOPAMIDOL CONTRAST (ORAL USE) VIAL PO PRN (23:20)
[2022-12-15] MEDS ORDERED: SODIUM CHLORIDE 0.9% 1,000 ML IV ONE (23:22)
[2022-12-15] MEDS ORDERED: KETOROLAC 15 MG/ML 1 ML VIAL IVP STA (23:22)
[2022-12-15 23:57] LABS: Basophils # (A) 0.1 k/uL (0-0.2); Basophils % (A) 0 %; Eosinophils # (A) 0.3 k/uL (0-0.7); Eosinophils % (A) 2 %; HCT 43.4 % (34.0-46.0); HGB 13.9 gm/dL (11.4-16.0); Lymphocytes # (A) 3.2 k/uL (1.0-4.8); Lymphocytes % (A) 29 %; MCH 28.1 pg (25.0-35.0); MCHC 32.1 g/dL (31.0-37.0); MCV 87.5 fL (80.0-100.0); Mean Platelet Volume 7.2; Monocytes # (A) 0.3 k/uL (0-1.0); Monocytes % (A) 3 %; Neutrophils % (A) 64 %; Platelet Count 332 k/uL (150-450); RBC 4.96 m/uL (3.80-5.40); RDW 12.5 % (11.5-15.5)
[2022-12-16 00:08] LABS: Appearance,Urine Clear (Clear); Bacteria,Urine Rare /hpf; Bilirubin,Urine Negative (Negative); Blood,Urine Large (Negative); Color,Urine Light Yellow; Glucose,Urine (UA) Negative (Negative); Ketones,Urine Negative (Negative); Leukocyte Esterase,Urine Small (Negative); Mucus,Urine Rare /hpf; Nitrite,Urine Negative (Negative); Protein,Urine Trace (Negative); RBC,Urine >182 /hpf (0-5); Specific Gravity,Urine 1.016 (1.001-1.035); Squamous Epithelial Cell,Urine <1 /hpf (0-4); Urobilinogen,Urine <2.0 mg/dL (<2.0); WBC,Urine 14 /hpf (0-5)
[2022-12-16 00:20] LABS: ALT 20 U/L (4-34); AST 26 U/L (14-36); African American GFR (CKD) >90 (>60 ml/min/1.73 sqM); Albumin 4.1 g/dL (3.5-5.0); Alkaline Phosphatase 78 U/L (38-126); Amylase 53 U/L (30-110); Anion Gap 10 mmol/L; Blood Urea Nitrogen 14 mg/dL (7-17); Calcium 9.6 mg/dL (8.4-10.2); Carbon Dioxide 22 mmol/L (22-30); Chloride 106 mmol/L (98-107); Glucose 101 mg/dL (74-99); Lipase 82 U/L (23-300); Magnesium 1.8 mg/dL (1.6-2.3); Non-African American GFR(CKD) >90 (>60 ml/min/1.73 sqM); Potassium 3.9 mmol/L (3.5-5.1); Sodium 138 mmol/L (137-145); Total Bilirubin 0.3 mg/dL (0.2-1.3); Total Protein 7.1 g/dL (6.3-8.2)
--- NOTE | 2022-12-16 01:06 | CT ---
EXAM: CT Abdomen and Pelvis With Intravenous Contrast CLINICAL HISTORY: ITS.REASON CT Reason: abdominal pain TECHNIQUE: Axial computed tomography images of the abdomen and pelvis with intravenous contrast. CTDI is 18.5 mGy and DLP is 995.7 mGy-cm. This CT exam was performed using one or more of the following dose reduction techniques: automated exposure control, adjustment of the mA and/or kV according to patient size, and/or use of iterative reconstruction technique. COMPARISON: 11/10/22 FINDINGS: Lung bases: Unremarkable. No mass. No consolidation. ABDOMEN: Liver: Unremarkable. No mass. Gallbladder and bile ducts: Contracted gallbladder. No biliary dilatation. No calcified stones. Pancreas: Unremarkable. No mass. No ductal dilation. Spleen: Unremarkable. No splenomegaly. Adrenals: Unremarkable. No mass. Kidneys and ureters: Mild hydronephrosis of the right kidney with heterogeneous enhancement. No obstructing ureteral stone. Multiple small nonobstructing right kidney stones. No visible nonobstructing left kidney stones, although nonobstructing left kidney stones are visualized on previous noncontrast CT. Stomach and bowel: Unremarkable. No mucosal thickening. No bowel obstruction. PELVIS: Appendix: No evidence of appendicitis. Bladder: Unremarkable urinary bladder. Reproductive: Uterus and adnexa appear unremarkable. Radiolucent device encircling the cervix, possibly contraceptive device. ABDOMEN and PELVIS: Intraperitoneal space: Unremarkable. No free fluid or free air. Bones/joints: No acute fracture. No dislocation. Soft tissues: Unremarkable. Vasculature: Unremarkable. No abdominal aortic aneurysm. Lymph nodes: Unremarkable. No enlarged lymph nodes. IMPRESSION: 1. Heterogeneous enhancement of the right kidney concerning for pyelonephritis. Correlation with urinalysis is recommended. 2. Multiple nonobstructing right kidney stones. Mild hydronephrosis of the right kidney without visible obstructing ureteral stone. Hydronephrosis may be related to pyelonephritis or recently passed kidney stone.
[2022-12-16] MEDS ORDERED: cefTRIAXone IN SWFI 1,000 MG/10 ML SYRINGE IVP STA (01:58)
[2022-12-16] MEDS ORDERED: NALOXONE 0.4 MG/ML 1 ML VIAL IV PRN (02:33)
[2022-12-16] MEDS: SODIUM CHLORIDE 0.9% 1,000 ML IV SCH ×2 (02:43→17:20)
--- NOTE | 2022-12-16 02:44 | ED ---
General Adult HPI - General Chief complaint: Abdominal Pain Stated complaint: post op pain Time Seen by Provider: 12/16/22 00:44 Source: patient Mode of arrival: wheelchair Limitations: no limitations - History of Present Illness Initial comments: This is a 32-year-old female with no past medical history presents emergency department for right flank pain and continued intermittent fevers and chills as well as nausea and vomiting. The patient did state that she had a stent placed by her urologist on Friday but had continued significant pain and did go back to the office and had it removed on . The patient was told that she should have improvement of her pain but stated that she had continued significant right-sided flank pain, chills, nausea and vomiting over the last several days. The patient stated that she was concerned about this continued pain so she came to the emergency department for evaluation. The patient denied any body aches or fevers however. - Related Data Home Medications Medication Instructions Recorded Confirmed PARoxetine [Paxil] 20 mg PO HS 02/11/14 12/09/22 buPROPion XL [Wellbutrin XL] 150 mg PO HS 02/11/14 12/09/22 traZODone HCL [Desyrel] 100 mg PO HS 02/11/14 12/09/22 Dextroamphetamine/Amphetamine 30 mg PO QAM 09/11/18 12/09/22 [Adderall Xr] Etonogestrel/Ethinyl Estradiol 1 each VG DIRECTED 12/17/18 12/09/22 [Nuvaring Vaginal Ring] Previous Rx's Medication Instructions Recorded Cephalexin [Keflex] 500 mg PO Q6HR 1 Days #4 cap 12/10/22 Ketorolac [Toradol] 10 mg PO Q6HR PRN #15 tab 12/10/22 Tamsulosin [Flomax] 0.4 mg PO DAILY #10 cap 12/10/22 Allergies Allergy/AdvReac Type Severity Reaction Status Date / Time No Known Allergies Allergy Verified 12/15/22 23:14 Review of Systems ROS Statement: Those systems with pertinent positive or pertinent negative responses have been documented in the HPI. ROS Other: All systems not noted in ROS Statement are negative. Past Medical History Past Medical History: No Reported History Additional Past Medical History / Comment(s): polycystic ovarian syndrome; History of Any Multi-Drug Resistant Organisms: None Reported Additional Past Surgical History / Comment(s): eye surgery for "lazy eye", lipotripsy with stent Past Anesthesia/Blood Transfusion Reactions: No Reported Reaction Past Psychological History: Anxiety, Depression Smoking Status: Never smoker Past Alcohol Use History: Occasional Past Drug Use History: None Reported General Exam Limitations: no limitations General appearance: alert, in no apparent distress Head exam: Present: atraumatic, normocephalic, normal inspection Eye exam: Present: normal appearance, PERRL Pupils: Present: normal accommodation ENT exam: Present: normal exam, normal oropharynx, mucous membranes moist Neck exam: Present: normal inspection, full ROM Respiratory exam: Present: normal lung sounds bilaterally Cardiovascular Exam: Present: regular rate, normal rhythm, normal heart sounds GI/Abdominal exam: Present: soft, tenderness (TTP over the right side of the abdomen), normal bowel sounds Extremities exam: Present: normal inspection, full ROM Back exam: Present: normal inspection, full ROM, CVA tenderness (R). Absent: CVA tenderness (L) Neurological exam: Present: alert, oriented X3, CN II-XII intact Psychiatric exam: Present: normal affect, normal mood Skin exam: Present: warm, dry Course Vital Signs 12/15/22 12/16/22 23:11 01:35 Temperature 97.5 F L Pulse Rate 80 89 Respiratory 18 18 Rate Blood Pressure 111/78 104/71 O2 Sat by Pulse 100 100 Oximetry Medical Decision Making - Medical Decision Making Was pt. sent in by a medical professional or institution (, PA, DIRECT CARE WORKER, urgent care, hospital, or alf...) When possible be specific @ -No Did you speak to anyone other than the patient for history (EMS, parent, family, police, friend...)? What history was obtained from this source @ -No Did you review nursing and triage notes (agree or disagree)? Why? @ -I reviewed and agree with nursing and triage notes Were old charts reviewed (outside hosp., previous admission, EMS record, old EKG, old radiological studies, urgent care reports/EKG's, alf records)? Report findings @ -No old charts were reviewed Differential Diagnosis (chest pain, altered mental status, abdominal pain women, abdominal pain men, vaginal bleeding, weakness, fever, dyspnea, syncope, headache, dizziness, GI bleed, back pain, seizure, CVA, palpatations, mental health)? @ -UTI, abscess, pyelonephritis EKG interpreted by me (3pts min.). @ -None X-rays interpreted by me (1pt min.). @ -None done CT interpreted by me (1pt min.). @ -CT abdomen and pelvis with IV contrast was obtained and was interpreted by myself showing heterogeneous enhancement of the right kidney concerning for pyelonephritis. There was multiple not affecting right kidney stones. There was mild hydronephrosis of the right kidney without visible obstructing renal stone. U/S interpreted by me (1pt. min.). @ -None done What testing was considered but not performed or refused? (CT, X-rays, U/S, labs)? Why? @ -None What meds were considered but not given or refused? Why? @ -None Did you discuss the management of the patient with other professionals (professionals i.e. , PA, DIRECT CARE WORKER, lab, RT, psych nurse, marriage and family social worker, associate automation engineer, teacher, county health officer, casey saw operator)? Give summary @ -Yes, urologist, Dr. Robins was contacted and did state that the patient can be placed in observation for pain control as well as further evaluation the morning. Was smoking cessation discussed for >3mins.? @ -No Was critical care preformed (if so, how long)? @ -No Were there social determinants of health that impacted care today? How? (Homelessness, low income, unemployed, alcoholism, drug addiction, transportatio n, low edu. Level, literacy, decrease access to med. care, [place] [facility], rehab)? @ -No Was there de-escalation of care discussed even if they declined (Discuss DNR or withdrawal of care, Hospice)? DNR status @ -No What co-morbidities impacted this encounter? (DM, HTN, Smoking, COPD, CAD, Cancer, CVA, ARF, Chemo, Hep., AIDS, mental health diagnosis, sleep apnea, morbid obesity)? @ -None Was patient admitted / discharged? Hospital course, mention meds given and route, prescriptions, significant lab abnormalities, going to OR and other pertinent info. @ -The patient was seen and evaluated in emergency department. Physical exam, the patient was resting in bed without any acute distress. The patient did have workup initiated in triage as well as IV fluids and Toradol. When I went to evaluate the patient, the patient did state that the Toradol did significantly help her pain. On evaluation, the patient did have significant right-sided CVA tenderness as well as right-sided abdominal pain. Laboratory workup was negative for any increased elevated white blood cell count or signs of significant UTI. There was hematuria noted. Computed tomography scan showed c oncerning signs for pyelonephritis and mild hydronephrosis and because of this her urologist was contacted. It was recommended the patient could be admitted for pain control as well as to be evaluated in the morning. The patient was given IV antibiotics as well as pain medications in the emergency department. The patient was told of this plan and was agreeable. The patient was placed in observation in stable condition. Undiagnosed new problem with uncertain prognosis? @ -No Drug Therapy requiring intensive monitoring for toxicity (Heparin, Nitro, Insulin, Cardizem)? @ -No Were any procedures done? @ -No Diagnosis/symptom? @ -Right pyelonephritis Acute, or Chronic, or Acute on Chronic? @ -Acute Uncomplicated (without systemic symptoms) or Complicated (systemic symptoms)? @ -Complicated Side effects of treatment? @ -No Exacerbation, Progression, or Severe Exacerbation? @ -No Poses a threat to life or bodily function? How? (Chest pain, [place], AR, pneumonia, PE, COPD, DKA, ARF, appy, cholecystitis, CVA, Diverticulitis, Homicidal, Suicidal, threat to staff... and all critical care pts) @ -Yes, continued pyelonephritis can lead to permanent kidney damage as well as possible sepsis, endorgan damage and possible . - Lab Data Result diagrams: 12/15/22 23:43 12/15/22 23:43 Lab Results 12/15/22 12/15/22 12/15/22 Range/Units 23:43 23:43 23:43 WBC 11.0 H (3.8-10.6) k/uL RBC 4.96 (3.80-5.40) m/uL Hgb 13.9 (11.4-16.0) gm/dL Hct 43.4 (34.0-46.0) % MCV 87.5 (80.0-100.0) fL MCH 28.1 (25.0-35.0) pg MCHC 32.1 (31.0-37.0) g/dL RDW 12.5 (11.5-15.5) % Plt Count 332 (150-450) k/uL MPV 7.2 Neutrophils % 64 % Lymphocytes % 29 % Monocytes % 3 % Eosinophils % 2 % Basophils % 0 % Neutrophils # 7.0 (1.3-7.7) k/uL Lymphocytes # 3.2 (1.0-4.8) k/uL Monocytes # 0.3 (0-1.0) k/uL Eosinophils # 0.3 (0-0.7) k/uL Basophils # 0.1 (0-0.2) k/uL Sodium 138 (137-145) mmol/L Potassium 3.9 (3.5-5.1) mmol/L Chloride 106 (98-107) mmol/L Carbon Dioxide 22 (22-30) mmol/L Anion Gap 10 mmol/L BUN 14 (7-17) mg/dL Creatinine 0.63 (0.52-1.04) mg/dL Est GFR (CKD-EPI)AfAm >90 (>60 ml/min/1.73 sqM) Est GFR (CKD-EPI)NonAf >90 (>60 ml/min/1.73 sqM) Glucose 101 H (74-99) mg/dL Calcium 9.6 (8.4-10.2) mg/dL Magnesium 1.8 (1.6-2.3) mg/dL Total Bilirubin 0.3 (0.2-1.3) mg/dL AST 26 (14-36) U/L ALT 20 (4-34) U/L Alkaline Phosphatase 78 (38-126) U/L Total Protein 7.1 (6.3-8.2) g/dL Albumin 4.1 (3.5-5.0) g/dL Amylase 53 (30-110) U/L Lipase 82 (23-300) U/L Urine Color Light Yellow Urine Appearance Clear (Clear) Urine pH 6.0 (5.0-8.0) Ur Specific [place] 1.016 (1.001-1.035) Urine Protein Trace H (Negative) Urine Glucose (UA) Negative (Negative) Urine Ketones Negative (Negative) Urine Blood Large H (Negative) Urine Nitrite Negative (Negative) Urine Bilirubin Negative (Negative) Urine Urobilinogen <2.0 (<2.0) mg/dL Ur Leukocyte Esterase Small H (Negative) Urine RBC >182 H (0-5) /hpf Urine WBC 14 H (0-5) /hpf Ur Squamous Epith Cells <1 (0-4) /hpf Urine Bacteria Rare H (None) /hpf Urine Mucus Rare H (None) /hpf Urine HCG, Qual (Not Detectd) 12/15/22 Range/Units 23:43 WBC (3.8-10.6) k/uL RBC (3.80-5.40) m/uL Hgb (11.4-16.0) gm/dL Hct (34.0-46.0) % MCV (80.0-100.0) fL MCH (25.0-35.0) pg MCHC (31.0-37.0) g/dL RDW (11.5-15.5) % Plt Count (150-450) k/uL MPV Neutrophils % % Lymphocytes % % Monocytes % % Eosinophils % % Basophils % % Neutrophils # (1.3-7.7) k/uL Lymphocytes # (1.0-4.8) k/uL Monocytes # (0-1.0) k/uL Eosinophils # (0-0.7) k/uL Basophils # (0-0.2) k/uL Sodium (137-145) mmol/L Potassium (3.5-5.1) mmol/L Chloride (98-107) mmol/L Carbon Dioxide (22-30) mmol/L Anion Gap mmol/L BUN (7-17) mg/dL Creatinine (0.52-1.04) mg/dL Est GFR (CKD-EPI)AfAm (>60 ml/min/1.73 sqM) Est GFR (CKD-EPI)NonAf (>60 ml/min/1.73 sqM) Glucose (74-99) mg/dL Calcium (8.4-10.2) mg/dL Magnesium (1.6-2.3) mg/dL Total Bilirubin (0.2-1.3) mg/dL AST (14-36) U/L ALT (4-34) U/L Alkaline Phosphatase (38-126) U/L Total Protein (6.3-8.2) g/dL Albumin (3.5-5.0) g/dL Amylase (30-110) U/L Lipase (23-300) U/L Urine Color Urine Appearance (Clear) Urine pH (5.0-8.0) Ur Specific [place] (1.001-1.035) Urine Protein (Negative) Urine Glucose (UA) (Negative) Urine Ketones (Negative) Urine Blood (Negative) Urine Nitrite (Negative) Urine Bilirubin (Negative) Urine Urobilinogen (<2.0) mg/dL Ur Leukocyte Esterase (Negative) Urine RBC (0-5) /hpf Urine WBC (0-5) /hpf Ur Squamous Epith Cells (0-4) /hpf Urine Bacteria (None) /hpf Urine Mucus (None) /hpf Urine HCG, Qual Not Detected (Not Detectd) Disposition Clinical Impression: Pyelonephritis Disposition: ADMITTED IP TO THIS [facility] Condition: Stable Is patient prescribed a controlled substance at d/c from ED?: No Referrals: Catina Gayle DO [Primary Care Provider] - 1-2 days Time of Disposition: 02:30 Decision to Admit Reason: Admit from EC Decision Date: 12/16/22 Decision Time: 02:30
[2022-12-16] MEDS: MORPHINE SULFATE 4 MG/ML SYRINGE IV PRN ×3 (08:35→17:48)
--- NOTE | 2022-12-16 10:21 | P.GSHP ---
History of Present Illness H&P Date: 12/16/22 32-year-old female status post right ureteroscopy with stent placement. It was removed last week. She continues with right flank pain. She presents to the ER complaining of nausea vomiting and fever. Her white count is 11,000. Urinalysis is somewhat inflamed. A computed tomography scan shows some mild [place]. She was sent to the hospital by and she will be admitted for IV fluids and IV antibiotics. - Constitutional Constitutional: Denies chills, Denies fever - EENT Eyes: denies blurred vision, denies pain Ears, nose, mouth and throat: Denies headache, Denies sore throat - Cardiovascular Cardiovascular: Denies chest pain, Denies shortness of breath - Respiratory Respiratory: Denies cough, Denies 7 - Gastrointestinal Gastrointestinal: Denies abdominal pain, Denies diarrhea, Denies nausea, Denies vomiting - Genitourinary (Female) Genitourinary: Denies dysuria, Denies hematuria - Genitourinary (Male) Genitourinary: Denies dysuria, Denies hematuria - Musculoskeletal Musculoskeletal: Denies myalgias - Integumentary Integumentary: Denies pruritus, Denies rash - Neurological Neurological: Denies numbness, Denies weakness - Psychiatric Psychiatric: Denies anxiety, Denies depression - Endocrine Endocrine: Denies fatigue, Denies weight change Past Medical History Past Medical History: No Reported History Additional Past Medical History / Comment(s): polycystic ovarian syndrome; History of Any Multi-Drug Resistant Organisms: None Reported Additional Past Surgical History / Comment(s): eye surgery for "lazy eye", lipotripsy with stent Past Anesthesia/Blood Transfusion Reactions: No Reported Reaction Past Psychological History: Anxiety, Depression Smoking Status: Never smoker Past Alcohol Use History: Occasional Past Drug Use History: None Reported Medications and Allergies Home Medications Medication Instructions Recorded Confirmed Type PARoxetine [Paxil] 20 mg PO HS 02/11/14 12/16/22 History buPROPion XL [Wellbutrin XL] 150 mg PO HS 02/11/14 12/16/22 History traZODone HCL [Desyrel] 100 mg PO HS 02/11/14 12/16/22 History Dextroamphetamine/Amphetamine 30 mg PO DAILY 09/11/18 12/16/22 History [Adderall Xr] Etonogestrel/Ethinyl Estradiol 1 ring VG DIRECTED 12/17/18 12/16/22 History [Nuvaring Vaginal Ring] Tamsulosin [Flomax] 0.4 mg PO DAILY #10 cap 12/10/22 12/16/22 Rx Allergies Allergy/AdvReac Type Severity Reaction Status Date / Time No Known Allergies Allergy Verified 12/16/22 06:57 Surgical - Exam Vital Signs Temp Pulse Resp BP Pulse Ox 97.5 F L 80 18 111/78 100 12/15/22 23:11 12/15/22 23:11 12/15/22 23:11 12/15/22 23:11 12/15/22 23:11 - General well developed, well nourished, no distress - Eyes normal ocular movement, no icteric - ENT no hearing loss, no congestion - Neck no masses, trachea midline - Respiratory normal respiratory effort, clear to auscultation - Abdomen Abdomen: soft, non tender, no guarding, no rigid, no rebound - Integumentary no rash, no abnormal pigmentation - Neurologic no disoriented, no combative - Psychiatric oriented to time, oriented to person, oriented to place, speech is normal, memory intact Results - Labs 12/15/22 23:43 12/15/22 23:43 Abnormal Lab Results - Last 24 Hours (Table) 12/15/22 12/15/22 12/15/22 Range/Units 23:43 23:43 23:43 WBC 11.0 H (3.8-10.6) k/uL Glucose 101 H (74-99) mg/dL Urine Protein Trace H (Negative) Urine Blood Large H (Negative) Ur Leukocyte Esterase Small H (Negative) Urine RBC >182 H (0-5) /hpf Urine WBC 14 H (0-5) /hpf Urine Bacteria Rare H (None) /hpf Urine Mucus Rare H (None) /hpf Diabetes panel 12/15/22 Range/Units 23:43 Sodium 138 (137-145) mmol/L Potassium 3.9 (3.5-5.1) mmol/L Chloride 106 (98-107) mmol/L Carbon Dioxide 22 (22-30) mmol/L BUN 14 (7-17) mg/dL Creatinine 0.63 (0.52-1.04) mg/dL Glucose 101 H (74-99) mg/dL Calcium 9.6 (8.4-10.2) mg/dL AST 26 (14-36) U/L ALT 20 (4-34) U/L Alkaline Phosphatase 78 (38-126) U/L Total Protein 7.1 (6.3-8.2) g/dL Albumin 4.1 (3.5-5.0) g/dL Calcium panel 12/15/22 Range/Units 23:43 Calcium 9.6 (8.4-10.2) mg/dL Albumin 4.1 (3.5-5.0) g/dL Pituitary panel 12/15/22 Range/Units 23:43 Sodium 138 (137-145) mmol/L Potassium 3.9 (3.5-5.1) mmol/L Chloride 106 (98-107) mmol/L Carbon Dioxide 22 (22-30) mmol/L BUN 14 (7-17) mg/dL Creatinine 0.63 (0.52-1.04) mg/dL Glucose 101 H (74-99) mg/dL Calcium 9.6 (8.4-10.2) mg/dL Adrenal panel 12/15/22 Range/Units 23:43 Sodium 138 (137-145) mmol/L Potassium 3.9 (3.5-5.1) mmol/L Chloride 106 (98-107) mmol/L Carbon Dioxide 22 (22-30) mmol/L BUN 14 (7-17) mg/dL Creatinine 0.63 (0.52-1.04) mg/dL Glucose 101 H (74-99) mg/dL Calcium 9.6 (8.4-10.2) mg/dL Total Bilirubin 0.3 (0.2-1.3) mg/dL AST 26 (14-36) U/L ALT 20 (4-34) U/L Alkaline Phosphatase 78 (38-126) U/L Total Protein 7.1 (6.3-8.2) g/dL Albumin 4.1 (3.5-5.0) g/dL - Imaging CT scan - abdomen: report reviewed, image reviewed CT scan - pelvis: report reviewed, image reviewed Assessment and Plan Assessment: Impression: Nausea, vomiting, uti post stone manipulation. Plan: IVF, iv ab antiemetics
[2022-12-16] MEDS ORDERED: ONDANSETRON 4 MG/2 ML VIAL IVP PRN (17:57)
[2022-12-16] MEDS ORDERED: traZODone HCL 50 MG TAB PO SCH (21:00)
[2022-12-16] MEDS ORDERED: PARoxetine 20 MG TAB PO SCH (21:00)
[2022-12-16] MEDS ORDERED: buPROPion XL 150 MG TAB.ER.24H PO SCH (21:00)
[2022-12-16] MEDS: KETOROLAC 15 MG/ML 1 ML VIAL IVP PRN (21:17)
[2022-12-17] MEDS: KETOROLAC 15 MG/ML 1 ML VIAL IVP PRN (08:41)
[2022-12-17] MEDS ORDERED: TAMSULOSIN 0.4 MG CAP.ER.24H PO SCH (09:00)
[2022-12-17] MEDS: SODIUM CHLORIDE 0.9% 1,000 ML IV SCH (10:51)
[2022-12-17 15:32] VITALS: BP 112/77; PULSE 81; RESP 16; TEMP 98.4
--- NOTE | 2022-12-18 06:01 | P.DS ---
Providers Date of admission: 12/16/22 02:33 Attending physician: Jay Robins MD Primary care physician: Catina Gayle [facility] Course: 32 yo female aadmitted 1 week post ureteroscopy and stone removal. SHe had persistant rt flank pain even after the stent was removed. She was admitted for ivf and iv antibiotics. SHe improved over the 36 hours and is ready to be d/c home diet regualr med tylenol activity normal antibiotic levaquin fu dr robins Patient Condition at Discharge: Good Plan - Discharge Summary New Discharge Prescriptions: No Action traZODone HCL [Desyrel] 100 mg PO HS buPROPion XL [Wellbutrin XL] 150 mg PO HS PARoxetine [Paxil] 20 mg PO HS Dextroamphetamine/Amphetamine [Adderall Xr] 30 mg PO DAILY Etonogestrel/Ethinyl Estradiol [Nuvaring Vaginal Ring] 1 ring VG DIRECTED Tamsulosin [Flomax] 0.4 mg PO DAILY #10 cap Discharge Medication List PARoxetine [Paxil] 20 mg PO HS 02/11/14 [History] buPROPion XL [Wellbutrin XL] 150 mg PO HS 02/11/14 [History] traZODone HCL [Desyrel] 100 mg PO HS 02/11/14 [History] Dextroamphetamine/Amphetamine [Adderall Xr] 30 mg PO DAILY 09/11/18 [History] Etonogestrel/Ethinyl Estradiol [Nuvaring Vaginal Ring] 1 ring VG DIRECTED 12/17/18 [History] Tamsulosin [Flomax] 0.4 mg PO DAILY #10 cap 12/10/22 [Rx] Follow up Appointment(s)/Referral(s): Catina Gayle DO [Primary Care Provider] - 1-2 days Kyaw Gutierrez MD [STAFF PHYSICIAN] - 1 Week Patient Instructions/Handouts: Kidney Infection (DC) Discharge Disposition: HOME SELF-CARE
== END 2022-12-17 15:54 | disposition home or self-care (01) ==
LOC: EC 22:54 → 6NMEDSUR 12-16 02:33
PROVIDERS: ADMIT Urology; ATTEND Urology
DX: N10 Acute pyelonephritis (principal); G89.18 Other acute postprocedural pain; E28.2 Polycystic ovarian syndrome; F32.A Depression, unspecified; F41.9 Anxiety disorder, unspecified; Z79.3 Long term (current) use of hormonal contraceptives; Z79.899 Other long term (current) drug therapy; Z98.890 Other specified postprocedural states
CPT/HCPCS: 96376 ×3; 96365; 96375 ×2; 96361; 99285; 36415; 80053; 82150; 83690; 83735; 85025; 81001; 81025; 74177; G0378 ×2; J2270; J2405; J0696 ×2; J1885 ×2; Q9967